=== PATIENT | female | born 1980 | race Hispanic/Latino ===

== ENCOUNTER 2017-09-08 17:53 | Emergency (ER) | payer MEDICAID, MEDICARE ==
[2017-09-08 17:53] VITALS: BMI 28.6
[2017-09-08 18:11] VITALS: BP 154/108; PULSE 76; RESP 18; TEMP 98; O2SAT 99
--- NOTE | 2017-09-08 20:21 | C.PDOC ---
History Of Present Illness 37 year old female presents to the ED c/o left knee pain. Patient reports that while she was walking she twisted her left knee and fell. Patient denies previous injury, fall, trauma, weakness, numbness. Chief Complaint (Nursing): Lower Extremity Problem/Injury History Per: Patient History/Exam Limitations: no limitations Onset/Duration Of Symptoms: Days Current Symptoms Are (Timing): Still Present Recent travel outside of the [place]: No Additional History Per: Patient - Knee Description Of Injury: Fell, Twisted Currently Unable To: Bend Or Move Past Medical History Reviewed: Historical Data, Nursing Documentation, Vital Signs Vital Signs: Last Vital Signs Temp 98 F 09/08/17 18:05 Pulse 76 09/08/17 18:05 Resp 18 09/08/17 18:05 BP 154/108 H 09/08/17 18:05 Pulse Ox 99 09/08/17 21:34 - Medical History PMH: Anxiety, Bipolar Disorder, Depression, HTN, Hypothyroidism Denies: Chronic Kidney Disease Surgical History: No Surg Hx Family History: States: Unknown Family Hx - Social History Hx Tobacco Use: Yes Hx Alcohol Use: Yes Hx Substance Use: Yes (HEROIN,COCAINE) - Immunization History Hx Tetanus Toxoid Vaccination: No Hx Influenza Vaccination: No Hx Pneumococcal Vaccination: No Review Of Systems Constitutional: Negative for: Fever, Chills Cardiovascular: Negative for: Chest Pain Respiratory: Negative for: Shortness of Breath Gastrointestinal: Negative for: Abdominal Pain Musculoskeletal: Positive for: Leg Pain Skin: Negative for: Rash Physical Exam - Physical Exam Appears: Non-toxic, No Acute Distress Skin: Normal Color, Warm, Dry Head: Atraumatic, Normacephalic Eye(s): bilateral: Normal Inspection Nose: No Discharge Oral Mucosa: Moist Neck: Normal ROM, Supple Chest: Symmetrical Cardiovascular: Rhythm Regular, No Murmur Respiratory: Normal Breath Sounds, No Rales, No Rhonchi, No Wheezing Gastrointestinal/Abdominal: Soft, No Tenderness, No Guarding, No Rebound Extremity: No Normal ROM (limited left knee due to pain), Tenderness (left knee medial aspect), Capillary Refill (< 2 seconds), No Deformity, Other (ecchymosis left knee medial aspect) Pulses: Left Dorsalis Pedis: Normal, Right Dorsalis Pedis: Normal Neurological/Psych: Oriented x3, Normal Speech, Normal Motor, Normal Sensation Gait: Steady ED Course And Treatment O2 Sat by Pulse Oximetry: 99 (ON RA) Pulse Ox Interpretation: Normal - CT Scan/US CT knee Other Rad Studies (CT/US): Read By Radiologist, Radiology Report Reviewed CT/US Interpretation: FINDINGS: Bones/joints: The patella maintains a normal relationship to the femur. There is minimal spurring of. the tibial spines. Subchondral cyst formation is noted on the femoral side of the medial compartment. of the knee joint. There is very mild narrowing of medial compartment knee joint. No acute fracture. No dislocation. Soft tissues: There is a small to moderate size effusion noted within the suprapatellar bursa. IMPRESSION: 1.. Small to moderate size joint effusion in the suprapatellar bursa. 2. Mild degenerative changes of the knee predominantly involving the medial compartment. Medical Decision Making Medical Decision Making: Impression: left knee pain s/p fall Plan: * CT left knee * Toradol 30 mg IM Disposition Counseled Patient/Family Regarding: Diagnosis - Disposition Referrals: [facility] [Outside] Disposition Time: 22:09 Condition: STABLE Prescriptions: Naproxen 375 mg PO TIDPC #20 tablet Instructions: Knee Sprain (DC) Forms: Gifts that Give (Croatian) - POA Present On Arrival: None - Clinical Impression Clinical Impression: Knee sprain - Scribe Statement The provider has reviewed the documentation as recorded by the Scribe Guillermo Herrmann All medical record entries made by the Scribe were at my direction and personally dictated by me. I have reviewed the chart and agree that the record accurately reflects my personal performance of the history, physical exam, medical decision making, and the department course for this patient. I have also personally directed, reviewed, and agree with the discharge instructions and disposition.
--- NOTE | 2017-09-09 10:26 | CT ---
PROCEDURE: CT left knee HISTORY: injury / swelling COMPARISON: Not available TECHNIQUE: 2.5 mm contiguous axial sections were acquired through the left knee. Sagittal and coronal images were reformatted from the axial scan. FINDINGS: There is no acute fracture. There is no lytic or blastic osseous lesion. There is narrowing of the medial joint compartment with subchondral sclerosis and mild marginal osteophyte formation, consistent with osteoarthritis. There is a small subchondral cyst seen in the posterior medial femoral condyles. There is mild irregularity of the patellar articular surface, again consistent with mild osteoarthritis. Lateral joint compartment appears preserved. There are no articular erosions. There is a small joint effusion. This is nonspecific. There is no popliteal cyst. There is no soft tissue mass or fluid collection appreciated. IMPRESSION: No acute fracture. Medial and patellofemoral osteoarthritis. Small joint effusion. Preliminary interpretation of this examination was reported by [facility] at 9:24 p.m. on 09/08/2017. There is concurrence of this report with the preliminary interpretation.
== END 2017-09-09 01:25 | disposition left against medical advice (07) ==
LOC: C.ER 17:53
DX: S83.92XA Sprain of unspecified site of left knee, initial encounter (principal); W18.30XA Fall on same level, unspecified, initial encounter; Y93.01 Activity, walking, marching and hiking
CPT/HCPCS: 73700; 82948; 96372; J1885

== ENCOUNTER 2018-05-30 05:23 | Inpatient (IN) | payer MEDICAID, MEDICARE ==
[2018-05-30 05:24] VITALS: BMI 28.6
[2018-05-30] MEDS ORDERED: Lidocaine 2% MPF (5 ml) Inj ONE (06:05)
[2018-05-30] MEDS ORDERED: Tetanus/Diphtheria Toxoids 0.5 ml Syringe IM ONE (06:07)
[2018-05-30] MEDS ORDERED: Tdap Vaccine 0.5 ml Vial (10-64 yrs) IM ONE (06:08)
[2018-05-30] MEDS ORDERED: Bacitracin 500 Units/gm Oint Foilpak UD TOP ONE (06:20)
[2018-05-30] MEDS ORDERED: Lidocaine 2% Inj (20ml) INFIL ONE (06:20)
[2018-05-30] MEDS ORDERED: Bacitracin 500 Units/gm Oint Foilpak UD ONE (06:25)
--- NOTE | 2018-05-30 06:31 | C.PDOC ---
History Of Present Illness 37 year old female with PMHx of bipolar disorder is brought to the ED for evaluation after she cut her wrists. Patient reports she has been recently "under tremendous amount of stress". Patient states that due to financial reasons she stopped taking her medications for bipolar disorder. Patient admits to heroin, fentanyl and cocaine use. Patient has been previously admitted for psych and drug abuse at other institutions. Upon arrival to the ED patient was in possession of a box finisher in her bag, patient was threatening to harm herself and the staff with the box finisher. Patient denies any medical complaint at this time. <Ari Pedersen DO - Last Filed: 05/30/18 06:31> History Per: Patient, EMS History/Exam Limitations: no limitations Onset/Duration Of Symptoms: Hrs Current Symptoms Are (Timing): Still Present Suicide/Self Injury Attempted (Context): Cut Wrists Modifying Factor(s): Narcotics, Cocaine Associated Symptoms: Anger, Agitation, Depression, Suicidal Thoughts, Suicidal Plan Recent travel outside of the [place]: No Additional History Per: Patient <Ari Pedersen DO - Last Filed: 05/30/18 06:31> <Ramon Silverman V - Last Filed: 05/30/18 18:56> Time Seen by Provider: 05/30/18 05:33 Chief Complaint (Nursing): Psychiatric Evaluation Past Medical History Reviewed: Historical Data, Nursing Documentation, Vital Signs Vital Signs: Last Vital Signs Temp 97.8 F 05/30/18 06:02 Pulse 105 H 05/30/18 06:02 Resp 18 05/30/18 06:02 BP 138/86 05/30/18 06:02 Pulse Ox 97 05/30/18 06:02 - Medical History PMH: Anxiety, Bipolar Disorder, Depression, HTN, Hypothyroidism Denies: Diabetes, Hepatitis, HIV, Chronic Kidney Disease, Seizures, Sexually Transmitted Disease Surgical History: Family History: States: Unknown Family Hx - Social History Hx Tobacco Use: Yes Hx Alcohol Use: Yes Hx Substance Use: Yes (HEROIN,COCAINE) - Immunization History Hx Tetanus Toxoid Vaccination: No Hx Influenza Vaccination: No Hx Pneumococcal Vaccination: No <Ari Pedersen DO - Last Filed: 05/30/18 06:31> Vital Signs: Last Vital Signs Temp 97.4 F L 02/03/19 07:17 Pulse 106 H 05/30/18 07:17 Resp 20 05/30/18 07:17 BP 125/74 05/30/18 07:17 Pulse Ox 97 05/30/18 06:40 <Ramon Silverman V Last Filed: 05/30/18 18:56> Review Of Systems Constitutional: Negative for: Fever, Chills Cardiovascular: Negative for: Chest Pain, Palpitations Respiratory: Negative for: Cough, Shortness of Breath Gastrointestinal: Negative for: Nausea, Vomiting, Abdominal Pain Skin: Positive for: Other (lacerations) Neurological: Negative for: Weakness, Numbness Psych: Positive for: Depression, Suicidal ideation <Chantellezaid BELLAri Gardenia Last Filed: 05/30/18 06:31> Physical Exam - Physical Exam Appears: Non-toxic, Other (anxious appearing) Skin: Normal Color, Warm, Dry Head: Atraumatic, Normacephalic Eye(s): bilateral: Normal Inspection Neck: Normal ROM, Supple Chest: Symmetrical Cardiovascular: Rhythm Regular Respiratory: Normal Breath Sounds, No Rales, No Rhonchi, No Wheezing Gastrointestinal/Abdominal: Soft, No Tenderness Extremity: Normal ROM, No Tenderness, Capillary Refill (< 2 seconds), No Swelling, Other (left wrist 2 superficial lacerations. Right wrist anterior aspect 2.5 cm lacearion no active bleeding. Superficial lacerations to bilateral extremities) Pulses: Left Radial: Normal, Right Radial: Normal Neurological/Psych: Oriented x3, Normal Speech, Normal Cognition Gait: Steady <Sariahurmila BELLAri Varner Last Filed: 05/30/18 06:31> ED Course And Treatment O2 Sat by Pulse Oximetry: 97 (ON RA) Pulse Ox Interpretation: Normal <Chantellezaid BELLAri Varner Last Filed: 05/30/18 06:31> - Laboratory Results Result Diagrams: 05/30/18 08:24 05/30/18 06:58 Lab Results: Total Bilirubin 1.2 mg/dL (0.2-1.3) 05/30/18 06:58 AST 35 U/L (14-36) 05/30/18 06:58 ALT 15 U/L (9-52) 05/30/18 06:58 Alkaline Phosphatase 77 U/L (38-126) 05/30/18 06:58 Total Protein 8.4 g/dL (6.3-8.3) H 05/30/18 06:58 Albumin 4.7 g/dL (3.5-5.0) 05/30/18 06:58 Globulin 3.7 gm/dL (2.2-3.9) 05/30/18 06:58 Albumin/Globulin Ratio 1.3 (1.0-2.1) 05/30/18 06:58 Urine Color Kenzie (YELLOW) 05/30/18 06:58 Urine Clarity Hazy (Clear) 05/30/18 06:58 Urine pH 5.0 (5.0-8.0) 05/30/18 06:58 Ur Specific Hasty 1.021 (1.003-1.030) 05/30/18 06:58 Urine Protein 2+ mg/dL (NEGATIVE) H 05/30/18 06:58 Urine Glucose (UA) Normal mg/dL (Normal) 05/30/18 06:58 Urine Ketones Negative mg/dL (NEGATIVE) 05/30/18 06:58 Urine Blood Negative (NEGATIVE) 05/30/18 06:58 Urine Nitrate Negative (NEGATIVE) 05/30/18 06:58 Urine Bilirubin Negative (NEGATIVE) 05/30/18 06:58 Urine Urobilinogen Normal mg/dL (0.2-1.0) 05/30/18 06:58 Ur Leukocyte Esterase 1+ Aly/uL (Negative) H 05/30/18 06:58 Urine WBC (Auto) 65 /hpf (0-5) H 05/30/18 06:58 Urine RBC (Auto) 6 /hpf (0-3) H 05/30/18 06:58 Ur Squamous Epith Cells 1 /hpf (0-5) 05/30/18 06:58 Urine Bacteria Mod (<OCC) H 05/30/18 06:58 Urine HCG, Qual Negative (NEGATIVE) 05/30/18 06:58 Urine HCG, Qual Negative (NEGATIVE) 05/30/18 06:58 <Ramon Silverman V - Last Filed: 05/30/18 18:56> Laceration - Laceration Repair right wrist Wound Length (In cm): 2.5 Description Of Wound: Linear Wound Cleansed With: Betadine, Sterile Saline Anesthesia: Lidocaine 2% Wound Examination: Irrigated With Saline, No FB With Wound Exploration, No Tendon Injury With Wound Exploration Wound Closure: Suture (x5) Suture Technique And Material Used: Interrupted, Nylon (3-o) Wound Complexity: Simple <Ari Pedersen DO Filed: 05/30/18 06:31> Medical Decision Making Medical Decision Making: Plan: * EKG * Labs * CXR * tetanus immunization * UA * 1:1 Obs * Crisis eval <Ari Pedersen DO Filed: 05/30/18 06:31> Medical Decision Makin:00: Patient was turned over to me (Dr. Silverman) by Dr. Pedersen at the end of his shift. Patient is pending labs. 07:54: Repeated EKG: * Normal sinus rhythm at 98 bpm * Borderline QT * No ST elevation 08:50: Patient's labs are back and patient is medically cleared. Patient has a UTI and will be prescribed antibiotics: Macrobid 100mg twice a day for 7 days. Discussed results with patient. Patient is in agreement. Patient has no other co mplaints at this time and is stable for discharge. Patient will be discharged. Follow up with PMD. Return if symptoms persist or worsen. <Ramon Silverman V - Last Filed: 05/30/18 18:56> Disposition <Ari Pedersen DO Filed: 05/30/18 06:31> Discussed With DrEna: Vinay Dick Doctor Will See Patient In The: Hospital - Disposition Disposition Time: 09:37 <Ramon Silverman V - Last Filed: 05/30/18 18:56> - Disposition Disposition: HOSPITALIZED Condition: STABLE - Clinical Impression Clinical Impression: Bipolar 1 disorder, UTI (urinary tract infection), Drug abuse - Scribe Statement The provider has reviewed the documentation as recorded by the Scribe Guillermo Herrmann All medical record entries made by the Scribe were at my direction and personally dictated by me. I have reviewed the chart and agree that the record accurately reflects my personal performance of the history, physical exam, medical decision making, and the department course for this patient. I have also personally directed, reviewed, and agree with the discharge instructions and disposition. <Ari Pedersen DO Filed: 05/30/18 06:31>
[2018-05-30 07:05] LABS: HCG,QUALITATIVE URINE NEGATIVE (NEGATIVE); SQUAMOUS EPITHIAL 1 /hpf (0-5); URINE BACTERIA MOD (<OCC); URINE BILIRUBIN NEGATIVE (NEGATIVE); URINE BLOOD NEGATIVE (NEGATIVE); URINE CLARITY Hazy (Clear); URINE COLOR Amber (YELLOW); URINE GLUCOSE (UA) NORMAL (Normal); URINE LEUKOCYTE ESTERASE 1+ Leu/uL (Negative); URINE PROTEIN 2+ mg/dL (NEGATIVE); URINE UROBILINOGEN NORMAL mg/dL (0.2-1.0)
[2018-05-30 07:13] LABS: ALB/GLOB RATIO 1.3 (1.0-2.1); ALBUMIN 4.7 g/dL (3.5-5.0); ALT/SGPT 15 U/L (9-52); AST/SGOT 35 U/L (14-36); BLOOD UREA NITROGEN 22 mg/dL (7-17); CALCIUM 9.6 mg/dl (8.6-10.4); GFR NON-AFRICAN AMERICAN > 60
[2018-05-30 07:34] LABS: BARBITURATES, UR NEGATIVE (NEGATIVE); PHENCYCLIDINE, UR NEGATIVE (NEGATIVE)
[2018-05-30 08:22] LABS: BENZODIAZEPINES, UR POSITIVE (NEGATIVE); OPIATES, UR POSITIVE (NEGATIVE)
[2018-05-30 08:29] LABS: BASO # 0.1 K/uL (0.0-0.2); BASO % 0.7 % (0.0-2.0); EOS # 0.2 K/uL (0.0-0.7); EOS % 1.4 % (0.0-4.0); HEMOGLOBIN 12.6 g/dL (11.0-16.0); LYMPH # 2.4 K/uL (1.0-4.3); LYMPH % 17.3 % (20.0-40.0); MEAN CORPUSCULAR HEMOGLOBIN 30.1 pg (27.0-31.0); MEAN CORPUSCULAR HGB CONC 33.6 g/dL (33.0-37.0); MEAN PLATELET VOLUME 8.7 fL (7.2-11.7); MONO # 0.7 K/uL (0.0-0.8); MONO % 4.9 % (0.0-10.0); NEUT # 10.5 K/uL (1.8-7.0); NEUT % 75.7 % (50.0-75.0); RBC 4.19 Mil/uL (3.80-5.20); WHITE BLOOD COUNT 13.8 K/uL (4.8-10.8)
[2018-05-30 08:33] LABS: MEAN CELL VOLUME 89.7 fL (81.0-99.0)
[2018-05-30 08:43] LABS: ACETAMINOPHEN < 10.0 ug/mL (10.0-30.0); SALICYLATE < 1.0 mg/dL 1
[2018-05-30 09:37] VITALS: TEMP 97.5
--- NOTE | 2018-05-30 10:02 | RAD ---
Date of service: 05/30/2018 HISTORY: Detox/Psy COMPARISON: Portable chest 04/17/2014. FINDINGS: LUNGS: No active pulmonary disease. PLEURA: No significant pleural effusion identified, no pneumothorax apparent. CARDIOVASCULAR: No aortic atherosclerotic calcification present. Normal cardiac size. No pulmonary vascular congestion. OSSEOUS STRUCTURES: No significant abnormalities. VISUALIZED UPPER ABDOMEN: Normal. OTHER FINDINGS: None. IMPRESSION: No interval acute cardiopulmonary disease appreciated.
[2018-05-30 14:33] VITALS: BP 116/77; PULSE 93; RESP 20; O2SAT 96
--- NOTE | 2018-05-30 16:36 | PCM.BM ---
<ArtisNicholeSubha Gisela - Last Filed: 05/30/18 16:33> Treatment Plan Problems - Problems identified on initial assessmt Ineffective Coping Date Initiated: 05/30/18 Time Initiated: 16:34 Assessment reference: NA Status: Active Suicidal Ideation Date Initiated: 05/30/18 Time Initiated: 16:34 Assessment reference: NA Status: Active High Risk Violence Date Initiated: 05/30/18 Time Initiated: 16:34 Assessment reference: NA Status: Active Treatment assets and liabiliti Patient Assests: ADL independent, negotiates basic needs, cognitively intact Patient Liabilities: relationship conflicts, substance abuse - Milieu Protocol Maintain good personal hygiene: daily Encourage regular showers, daily Remind patient to perform daily oral care, daily Assist patient to perform ADL's Maintain personal safety: every shift Educate patient to report safety concerns to staff, every shift Monitor environment for contraband/sharps Medication safety: Monitor for expected outcome, potential side effects: every shift, Assess barriers to learning: every shift, Assess readiness for medication education: every shift <Vee Pickens - Last Filed: 05/31/18 11:55> - Diagnosis (1) Bipolar 1 disorder Status: Acute Interventions: 05/31/18 11:55 * Assess/adjust medications daily and /or as needed * See patient on an individual basis 7x/week to assess level of manic behaviors and stability * Discuss risks, benefits, side effects and alternatives of medications * (2) Opioid use disorder, severe, dependence Status: Acute Interventions: 05/31/18 11:56 * Assess 7x/week regarding severity of withdrawal * Educate regarding risks, benefits, side effects and alternatives of medications * Use Motivational Interviewing for abstinence * Use CBT for relapse prevention * Medication management for withdrawal symptoms * Encourage medication assisted treatment * (3) Opioid withdrawal Status: Acute Interventions: 05/31/18 11:56 * Assess 7x/week regarding severity of withdrawal * Educate regarding risks, benefits, side effects and alternatives of medications * Use Motivational Interviewing for abstinence * Use CBT for relapse prevention * Medication management for withdrawal symptoms * Encourage medication assisted treatment * <Lacie Lima - Last Filed: 05/31/18 13:50> Family Contact Family involvement: Famliy/SO not involved - Goals for Treatment Patient goals for treatment: "I need more methadone." Discharge/Continuing Care - Education Needs Education Needs: Patient Medication, Patient Coping Skills, Patient Placement options, Patient Community resources - Discharge Discharge Criteria: Tolerates medication w/o severe side effects, No longer exhibiting s/s of withdrawal Discharge to:: Care Home - Treatment Team Participation Discussed with Family/SO: No Was Patient/Family/SO present at Treatment Team Meeting: Yes (Pt signed out AMA)
[2018-05-30] MEDS ORDERED: Aluminum Hydroxide/Magnesium Hydroxide Susp (30 mL) PO PRN (16:55)
--- NOTE | 2018-05-31 09:53 | PCM.PSYCH ---
Initial Psychiatric Evaluation - Initial Psychiatric Evaluation Type of Admission: Voluntary Legal Status: Capacity Chief Complaint (in patient's own words): I was feeling depressed and suicidal' History of Present Illness and Precipitating Events: Patient is a 37 year old CF who was brought to the ED by her brother after she harmed herself by cutting her wrists with box feeder.. Patient reports history of bipolar disorder and history of multiple inpatient psychiatric hospitalizations. As per the triage report, patient reported she was recently admitted at [facility] for detox but since she was using in the detox, she was sent to the [facility] ER. when she was returned to [facility], she signed herself out AMA. Patient also appears to be non treatment and non medication compliant as Patient did not follow up with any services after signing out of [facility] AMA. On examination patient appeared to be anxious and unkempt but was open to questioning. She explained that she was terrified of going into withdrawal, mentioning that she would use up to 3 bundles of heroin a day to stay normal, and that she had used a boxcutter to self harm, cutting the medial aspects of the distal arm bilaterally, because of the increased stressed she felt under. She went on to say that she wanted to enter a rehabilitation program to curb her heroin dependence. During the middle of the questioning, it was discovered that the patient had left 3 bags of heroin in a magazine in her room and the psychiatry staff were made aware of this. When the patient was asked about the illicit drugs, she explained that she had smuggled 30 bags of heroin in with her to the hospital and that she had use 15 of them in the ED prior to being admitted and had used 12 during her stay in the psychiatric unit. She said that she needed to take the heroin as she was not getting enough methadone to curb her symptoms of withdrawal. She also refused to answer any questions pertaining to where she hid the rest of the drugs she had brought in with her. Patient takes seraquil, trazadone, neurontin, and haldol. However she denied any suicidal ideation or any homicidal ideation. She denied any auditory or visual hallucinations or any paranoia. Current Medications: Active Medications Generic Name Dose Route Start Last Admin Trade Name Freq PRN Reason Stop Dose Admin Al Hydrox/Mg Hydrox/Simethicone 30 ml 05/30/18 16:55 Maalox 30 Ml PO TID PRN Indigestion / Heartburn Chlordiazepoxide 25 mg 05/30/18 18:44 05/30/18 20:55 Librium PO 25 mg Q4H PRN Administration Alcohol Withdrawal Clonidine HCl 0.1 mg 05/30/18 16:55 Catapres PO Q4 PRN COWS Score More or Equal to 5 Dicyclomine HCl 10 mg 05/30/18 16:55 05/30/18 20:55 Bentyl PO 10 mg Q6 PRN Administration Muscle spasm Gabapentin 300 mg 05/30/18 18:00 05/30/18 18:48 Neurontin PO 300 mg TID JUAN Administration Ibuprofen 600 mg 05/30/18 16:55 Motrin Tab PO Q6 PRN Pain, moderate (4-7) Influenza Virus Vaccine 60 mcg 06/02/18 10:00 Flucelvax Quad [id number] Syr IM 06/02/18 10:01 .ONCE ONE Loperamide HCl 2 mg 05/30/18 16:55 Imodium PO Q8 PRN Diarrhea Methadone HCl 15 mg 05/31/18 10:00 Methadone PO 06/03/18 09:59 Q24H JUAN Taper Nitrofurantoin Macrocrystals 100 mg 05/30/18 20:00 05/30/18 19:12 Macrobid PO 06/03/18 20:00 100 mg Q12H JUAN Administration Protocol Ondansetron HCl 4 mg 05/30/18 16:55 Zofran Tab PO Q8 PRN Nausea/Vomiting Pneumococcal Polyvalent Vaccine 0.5 ml 06/02/18 10:00 Pneumovax 23 Vaccine IM 06/02/18 10:01 .ONCE ONE Trazodone HCl 50 mg 05/30/18 22:00 05/30/18 21:15 Desyrel PO Not Given HS JUAN Past Psychiatric History - Past Psychiatric History Previous Treatment History: Inpatient Pertinent Medical Hx (Current Medical&Sleep Prob, Allergies): Allergies Allergy/AdvReac Type Severity Reaction Status Date / Time No Known Allergies Allergy Verified 11/17/17 04:25 No Known Home Med 05/30/18 Review of Systems - Review of Systems All systems: reviewed and no additional remarkable complaints except - Psychiatric Psychiatric: Anxiety, Irritability, Mood Swings, Suicidal Ideation Mental Status Examination - Personal Presentation Personal Presentation: Looks stated age - Affect Affect: Broad - Motor Activity Motor Activity: Psychomotor Agitation - Reliability in Providing Information Reliability in Providing Information: Fair - Speech Speech: Organized - Mood Mood: Anxious - Formal Thought Process Formal Thought Process: No Impairment - Obsessions/Compulsions Obsessions: No Compulsions: No - Cognitive Functions Orientation: Person, Place, Situation, Time Sensorium: Alert Attention/Concentration: Attentive Abstract Thinking: [place] Estimate of Intelligence: Below average Judgement: Imparied, as evidence by: Poor judgement, Intact, as evidence by: Insight regarding need for hospitalization - Risk Risk: Withdrawal, Diminished functioning - Limitations Limitations: Living alone DSM 5 DX - DSM 5 DSM 5 Diagnosis: Bipolar disorder mixed moderate Opioid use disorder severe Opioid withdrawal Cocaine use disorder severe - Recommended/Plan of Treatment Treatment Recommendations and Plan of Treatment: CBT Psychoeducation Group therapy, milieu therapy Seroquel 300 mg p.o. nightly Trazodone 100 mg p.o. nightly Methadone taper Neurontin 300 mg p.o. 3 times daily Withdrawal medications - Smoking Cessation Smoking Cessation Initiated: No
[2018-05-31] MEDS ORDERED: Divalproex 500 mg DR Tab PO SCH (12:00)
--- NOTE | 2018-05-31 21:41 | PCM.PYCHDC ---
Mental Status Examination - Mental Status Examination Orientation: Person, Place, Situation, Time Memory: Intact Mood: Anxious Affect: Broad, Constricted Speech: Soft Attention: WNL Concentration: WNL Association: WNL Fund of Knowledge: WNL Formal Thought Process: No Impairment Description of patient's judgement and insight: partially impaired Psychotic Thoughts and Behaviors: denies any AVH Suicidal Ideation: No Current Homicidal Ideation?: No Discharge Summary - Discharge Note Reason for Hospitalization: Patient is a 37 year old CF who was brought to the ED by her brother after she harmed herself by cutting her wrists with aging box hand.. Patient reports history of bipolar disorder and history of multiple inpatient psychiatric hospitalizations. As per the triage report, patient reported she was recently admitted at [facility] for detox but since she was using in the detox, she was sent to the [facility] ER. when she was returned to [facility], she signed herself out AMA. Patient also appears to be non treatment and non medication compliant as Patient did not follow up with any services after signing out of [facility] AMA. On examination patient appeared to be anxious and unkempt but was open to questioning. She explained that she was terrified of going into withdrawal, mentioning that she would use up to 3 bundles of heroin a day to stay normal, and that she had used a boxcutter to self harm, cutting the medial aspects of the distal arm bilaterally, because of the increased stressed she felt under. She went on to say that she wanted to enter a rehabilitation program to curb her heroin dependence. During the middle of the questioning, it was discovered that the patient had left 3 bags of heroin in a magazine in her room and the psychiatry staff were made aware of this. When the patient was asked about the illicit drugs, she explained that she had smuggled 30 bags of heroin in with her to the hospital and that she had use 15 of them in the ED prior to being admitted and had used 12 during her stay in the psychiatric unit. She said that she needed to take the heroin as she was not getting enough methadone to curb her symptoms of withdrawal. She also refused to answer any questions pertaining to where she hid the rest of the drugs she had brought in with her. Patient takes seraquil, trazadone, neurontin, and haldol. However she denied any suicidal ideation or any homicidal ideation. She denied any auditory or visual hallucinations or any paranoia. Consultations:: List each consultation separately and include: 1. Reason for request. 2. Findings. 3. Follow-up Summary of Hospital Course include:: 1. Description of specific treatment plan utilized for patients during their course of treatmen. 2. Summarize the time- course for resolution of acute symptoms and/or regressed behaviors. 3. Describe issues identified and worked on during hospitalization. 4. Describe medication utilized. 5. Describe medical problems identified and treated. 6. Reassessment of suicide risk Summary of Hospital Course: Today staff recovered 3 bags of heroine for the patient's belongings. Patient reports that she smuggled almost 30 bags of heroine to the [facility] psychiatric floor. She reports that she has been using heroin since last night. However, as per the staff, no one witnessed patient abusing heroine in the unit. Patient remained a poor historian. However upon consultation, patient became irritable and agitated and started yelling and cursing. She started asking for more more methadone and eventually she signed out AMA. However she denies any auditory or visual hallucinations and she denies any suicidal ideation or any homicidal ideation at the time of discharge. - Diagnosis (1) Bipolar 1 disorder Status: Acute (2) Opioid use disorder, severe, dependence Status: Acute (3) Opioid withdrawal Status: Acute - Final Diagnosis (DSM 5) Condition upon Discharge: STABLE DSM 5: Bipolar disorder mixed moderate Opioid use disorder severe Opioid withdrawal Cocaine use disorder severe Disposition: AGAINST MEDICAL ADVICE Follow-up Treatment Plan: Education: Pt was educated and counseled about the risks and benefits of taking and not taking medications. Pt was educated and counseled about the risks of drinking and abusing drugs. Pt was educated and counseled to go to the ER or call 911 if pt develop suicidal ideation or homicidal ideation, worsening of symptoms or severe side effects of the meds. - Smoking Cessation Smoking Cessation Medication prescribed: No - Antipsychotic Medications Pt discharged on 2 or more routine antipsychotic medications: No
--- NOTE | 2018-06-01 10:01 | CARD ---
APPROVED REPORT Date of service: 05/30/2018 EKG Measurement Heart [id number] <Conclusion> Normal sinus rhythm Prolonged QT Abnormal ECG
[2018-06-02] MEDS ORDERED: Influenza Vaccine 60 mcg/0.5 mL SYR (4YR UP) IM ONE (10:00)
[2018-06-02] MEDS ORDERED: Pneumococcal 23-Valent Vaccine IM ONE (10:00)
== END 2018-05-31 12:20 | disposition left against medical advice (07) | DRG 885 ==
LOC: C.ER 05:23 → C.9E 09:38 → C.5E 11:47 → C.9E 12:40 → C.5E 14:30
DX: F31.62 Bipolar disorder, current episode mixed, moderate (principal); F11.23 Opioid dependence with withdrawal; N39.0 Urinary tract infection, site not specified; I10 Essential (primary) hypertension; E03.9 Hypothyroidism, unspecified; Z87.891 Personal history of nicotine dependence; S61.511A Laceration without foreign body of right wrist, initial encounter; S61.512A Laceration without foreign body of left wrist, initial encounter; X78.9XXA Intentional self-harm by unspecified sharp object, initial encounter; F14.10 Cocaine abuse, uncomplicated